=== PATIENT | female | born 1940 | race African-American/Black ===

== ENCOUNTER 2018-03-13 19:24 | Inpatient (IN) | payer OTHER, MEDICAID ==
[~2018-03-13] VITALS: Ht 165.1 cm; Wt 61.7 kg
[2018-03-13 20:48] LABS: CHLORIDE 111 mEq/L (98-107)
[2018-03-13 21:52] LABS: BG BASE EXCESS -0.6 mmol/L (-2.0-2.0); BG CARBOXYHEMOGLOBIN 0.5 % (0.5-1.5); BG DEOXYHEMOGLOBIN 6.2 % (0.0-5.0); BG FRACTION INSPIRED OXYGEN 36; BG HCO3 ACT 25.2 mmol/L (22.0-26.0); BG METHEMOGLOBIN 0.2 % (0.0-1.5); BG OXYGEN SATURATION 93.8 % (92.0-98.5); BG OXYHEMOGLOBIN 93.1 % (94.0-97.0); BG PCO2 46.1 mmHg (35.0-45.0); BG PH 7.356 (7.350-7.450); BG PO2 71.7 mmHg (75.0-100.0); BG SAMPLE SITE RIGHT RADIAL; BG TOTAL HEMOGLOBIN 13.2 g/dL (12.0-18.0); BG VENT MODE NASAL CANNULA
[2018-03-13 22:04] LABS: BASOPHILS % 0.8 % (0.0-2.0); EOSINOPHILS % 2.4 % (0.0-5.0); HEMATOCRIT. 39.9 % (36.0-48.0); HEMOGLOBIN. 13.4 g/dL (12.0-16.0); LYMPHOCYTES % 27.5 % (20.0-50.0); MEAN CORPUSCULAR HEMOGLOBIN 31.4 pg (28.0-32.0); MEAN CORPUSCULAR VOLUME 93.7 fL (81.0-99.0); MONOCYTES % 7.8 % (2.0-8.0); NEUTROPHILS % 61.5 % (40.0-76.0); RED BLOOD CELL COUNT 4.26 mill/uL (4.2-5.4); RED CELL DISTRIBUTION WIDTH 12.9 % (11.6-14.6)
[2018-03-13 22:12] LABS: INR 1.1; PROTHROMBIN TIME 11.3 sec (9.4-11.6)
[2018-03-13] MEDS ORDERED: SODIUM CHLORIDE 0.9% 1,000 ML IV ONE (23:00)
[2018-03-14 03:00] VITALS: BP 169/83
[2018-03-14] MEDS ORDERED: ACETAMINOPHEN 325MG TABLET PO PRN (04:00)
[2018-03-14] MEDS ORDERED: LEVOFLOXACIN 250MG PREMIX 50 ML IV SCH (05:00)
[2018-03-14 08:00] VITALS: BP 162/79
[2018-03-14] MEDS: ENOXAPARIN 40MG/0.4ML SYR SUBCUT SCH (09:10)
[2018-03-14 12:00] VITALS: BP 173/87
[2018-03-14 12:57] LABS: HEMATOCRIT. 40.5 % (36.0-48.0); HEMOGLOBIN. 13.5 g/dL (12.0-16.0); MEAN CORPUSCULAR HEMOGLOBIN 30.8 pg (28.0-32.0); MEAN CORPUSCULAR VOLUME 92.7 fL (81.0-99.0); MEAN PLATELET VOLUME 10.2 fl (7.4-10.4); PLATELET 140 x1000/uL (130-400); RED BLOOD CELL COUNT 4.37 mill/uL (4.2-5.4); RED CELL DISTRIBUTION WIDTH 12.6 % (11.6-14.6)
[2018-03-14 13:03] LABS: AMMONIA 18 uMol/L (<32)
[2018-03-14] MEDS: DEXT 5%/0.45% NACL 1000ML 1,000 ML IV SCH ×2 (13:05→23:54)
[2018-03-14 13:07] LABS: CHLORIDE 107 mEq/L (98-107)
[2018-03-14] MEDS ORDERED: ACETAMINOPHEN 650MG SUPP PR PRN (13:30)
[2018-03-14] MEDS ORDERED: ENALAPRIL 2.5MG/2ML VIAL 2ML IV PRN (13:30)
[2018-03-14] MEDS: HYDRALAZINE 20MG/ML VIAL IV PRN (13:51)
[2018-03-14 15:33] LABS: PLATELET ESTIMATE NORMAL
[2018-03-14 16:00] VITALS: BP 143/67
[2018-03-14] MEDS ORDERED: IPRATROPIUM/ALBUTEROL 0.5-3(2.5)MG/3ML NEB HHN PRN (16:15)
[2018-03-14] MEDS ORDERED: PIPERACILLIN/TAZ 3.375G PREMIX 50 ML IV SCH (17:30)
[2018-03-14 19:15] LABS: CLARITY URINE CLEAR (CLEAR); COLOR URINE YELLOW (YELLOW); KETONES URINE 1+ (NEGATIVE); LEUKOCYTE ESTERASE URINE NEGATIVE (NEGATIVE); NITRITE URINE NEGATIVE (NEGATIVE); OCCULT BLOOD URINE NEGATIVE (NEGATIVE); PROTEIN URINE TRACE (NEGATIVE); SPECIFIC GRAVITY URINE 1.018 (1.005-1.030)
[2018-03-14 20:00] VITALS: BP 149/71
[2018-03-14] MEDS ORDERED: THIAMINE HCL 100 MG in SODIUM CHLORIDE 0.9% 49 ML IV NR (21:00)
[2018-03-14] MEDS: PIPERACILLIN/TAZ 3.375G PREMIX 50 ML IV SCH (21:49)
[2018-03-15] VITALS: BP 166/82
[2018-03-15 04:00] VITALS: BP 165/77
[2018-03-15] MEDS: PIPERACILLIN/TAZ 3.375G PREMIX 50 ML IV SCH ×3 (05:51→21:05)
[2018-03-15 08:00] VITALS: BP 155/84
[2018-03-15 11:20] LABS: BASOPHILS % 0.3 % (0.0-2.0); EOSINOPHILS % 1.1 % (0.0-5.0); HEMOGLOBIN. 12.9 g/dL (12.0-16.0); LYMPHOCYTES % 16.4 % (20.0-50.0); MEAN CORPUSCULAR HEMOGLOBIN 31.3 pg (28.0-32.0); MEAN CORPUSCULAR VOLUME 92.4 fL (81.0-99.0); MEAN PLATELET VOLUME 10.1 fl (7.4-10.4); MONOCYTES % 8.5 % (2.0-8.0); NEUTROPHILS % 73.7 % (40.0-76.0); PLATELET 134 x1000/uL (130-400); RED BLOOD CELL COUNT 4.12 mill/uL (4.2-5.4)
[2018-03-15 12:00] VITALS: BP 203/92
[2018-03-15] MEDS: ENOXAPARIN 40MG/0.4ML SYR SUBCUT SCH (12:19)
[2018-03-15] MEDS: CLOPIDOGREL 75MG TABLET PO SCH (12:19)
[2018-03-15] MEDS: HYDRALAZINE 20MG/ML VIAL IV PRN (12:20)
[2018-03-15] MEDS: AMLODIPINE 10MG TABLET PO SCH (12:20)
[2018-03-15] MEDS: LOSARTAN POTASSIUM 50 MG TABLET PO SCH (13:00)
[2018-03-15 14:26] LABS: CHLORIDE 113 mEq/L (98-107)
[2018-03-15 14:49] LABS: T4 FREE 1.12 ng/dL (0.76-1.46)
[2018-03-15 16:00] VITALS: BP 179/75
[2018-03-15] MEDS ORDERED: VANCOMYCIN 1250MG in DEXTROSE 5% WATER 250ML IV SCH (17:00)
[2018-03-15 20:00] VITALS: BP 149/71
[2018-03-15] MEDS ORDERED: POTASSIUM CHLORIDE 20MEQ/PACKET PO NR (20:30)
[2018-03-15] MEDS: DEXT 5%/0.45% NACL 1000ML 1,000 ML IV SCH (21:04)
[2018-03-16] VITALS: BP 142/73
[2018-03-16 04:00] VITALS: BP 137/82
[2018-03-16] MEDS: PIPERACILLIN/TAZ 3.375G PREMIX 50 ML IV SCH ×3 (05:12→21:04)
[2018-03-16 08:00] VITALS: BP 159/85
[2018-03-16] MEDS: AMLODIPINE 10MG TABLET PO SCH (09:06)
[2018-03-16] MEDS: CLOPIDOGREL 75MG TABLET PO SCH (09:06)
[2018-03-16] MEDS: LOSARTAN POTASSIUM 50 MG TABLET PO SCH (09:06)
[2018-03-16] MEDS: ENOXAPARIN 40MG/0.4ML SYR SUBCUT SCH (09:07)
[2018-03-16 12:00] VITALS: BP 146/77
[2018-03-16] MEDS: VANCOMYCIN 1 G PREMIX 200 ML IV SCH (12:51)
[2018-03-16] MEDS: DEXT 5%/0.45% NACL 1000ML 1,000 ML IV SCH (12:51)
[2018-03-16 16:00] VITALS: BP 140/80
[2018-03-16 20:00] VITALS: BP 153/82
[2018-03-17] VITALS: BP 168/86
[2018-03-17] MEDS: DEXT 5%/0.45% NACL 1000ML 1,000 ML IV SCH ×2 (02:51→15:47)
[2018-03-17 04:00] VITALS: BP 141/75
[2018-03-17] MEDS: VANCOMYCIN 1 G PREMIX 200 ML IV SCH ×2 (04:24→22:33)
[2018-03-17] MEDS: PIPERACILLIN/TAZ 3.375G PREMIX 50 ML IV SCH ×3 (05:53→21:10)
[2018-03-17 08:00] VITALS: BP 133/71
[2018-03-17] MEDS: LOSARTAN POTASSIUM 50 MG TABLET PO SCH (09:06)
[2018-03-17] MEDS: CLOPIDOGREL 75MG TABLET PO SCH (09:06)
[2018-03-17] MEDS: AMLODIPINE 10MG TABLET PO SCH (09:08)
[2018-03-17] MEDS: ENOXAPARIN 40MG/0.4ML SYR SUBCUT SCH (09:08)
[2018-03-17 12:00] VITALS: BP 193/104
[2018-03-17] MEDS: HYDRALAZINE 20MG/ML VIAL IV PRN (13:01)
[2018-03-17] MEDS ORDERED: CLONIDINE 0.1MG TABLET PO PRN (15:45)
[2018-03-17 16:00] VITALS: BP 111/63
[2018-03-17 19:45] LABS: HEMATOCRIT 36.5 % (36.0-48.0); HEMOGLOBIN 12.3 g/dL (12.0-16.0); MEAN CORPUSCULAR VOLUME 92.1 fL (81.0-99.0); PLATELET 179 x1000/uL (130-400); RED BLOOD CELL COUNT 3.96 mill/uL (4.2-5.4); RED CELL DISTRIBUTION WIDTH 12.7 % (11.6-14.6)
[2018-03-17 19:52] LABS: CHLORIDE 108 mEq/L (98-107)
[2018-03-17 20:00] VITALS: BP 138/68
[2018-03-17] MEDS ORDERED: POTASSIUM CHLORIDE 20MEQ TABLET SR PO NR (20:15)
[2018-03-18] VITALS: BP 128/77
[2018-03-18 04:00] VITALS: BP 133/76
[2018-03-18] MEDS: DEXT 5%/0.45% NACL 1000ML 1,000 ML IV SCH ×3 (05:01→20:06)
[2018-03-18] MEDS: PIPERACILLIN/TAZ 3.375G PREMIX 50 ML IV SCH ×3 (05:01→21:30)
[2018-03-18 08:00] VITALS: BP 102/60
[2018-03-18] MEDS: AMLODIPINE 10MG TABLET PO SCH (09:00)
[2018-03-18] MEDS: LOSARTAN POTASSIUM 100 MG TABLET PO SCH (09:00)
[2018-03-18] MEDS: CLOPIDOGREL 75MG TABLET PO SCH (09:48)
[2018-03-18] MEDS: ENOXAPARIN 40MG/0.4ML SYR SUBCUT SCH (09:48)
[2018-03-18 12:00] VITALS: BP 118/67
[2018-03-18] MEDS: VANCOMYCIN 1 G PREMIX 200 ML IV SCH ×2 (14:57→22:28)
[2018-03-18 16:00] VITALS: BP 114/67
[2018-03-18 16:42] LABS: VITAMIN B12 SERUM 284 pg/mL (211-911)
[2018-03-18 20:00] VITALS: BP 119/63
[2018-03-19] VITALS (7 sets, daily range): BP systolic 116–147; BP diastolic 58–76
[2018-03-19] MEDS: DEXT 5%/0.45% NACL 1000ML 1,000 ML IV SCH (04:00)
[2018-03-19] MEDS: PIPERACILLIN/TAZ 3.375G PREMIX 50 ML IV SCH ×2 (05:22→13:12)
[2018-03-19] MEDS: VANCOMYCIN 1 G PREMIX 200 ML IV SCH (08:25)
[2018-03-19] MEDS: ENOXAPARIN 40MG/0.4ML SYR SUBCUT SCH (08:25)
[2018-03-19] MEDS: AMLODIPINE 10MG TABLET PO SCH (08:26)
[2018-03-19] MEDS: CLOPIDOGREL 75MG TABLET PO SCH (08:26)
[2018-03-19] MEDS: LOSARTAN POTASSIUM 100 MG TABLET PO SCH (08:26)
== END 2018-03-19 21:19 | disposition short-term general hospital (02) | DRG 871 ==
LOC: ER 19:24 → 5WST 03-14 01:05 → EDBEDREQTM 03-14 01:06 → EDBEDREQ 03-14 01:06 → ENRESERV 03-14 01:33
PROVIDERS: ADMIT Internal Medicine; ATTEND Internal Medicine
DX: A41.9 Sepsis, unspecified organism (principal); G93.41 Metabolic encephalopathy; J69.0 Pneumonitis due to inhalation of food and vomit; J96.00 Acute respiratory failure, unspecified whether with hypoxia or hypercapnia; I63.9 Cerebral infarction, unspecified; E44.1 Mild protein-calorie malnutrition; I10 Essential (primary) hypertension; E87.8 Other disorders of electrolyte and fluid balance, not elsewhere classified; H40.9 Unspecified glaucoma; F03.90 Unspecified dementia, unspecified severity, without behavioral disturbance, psychotic disturbance, mood disturbance, and anxiety; E03.9 Hypothyroidism, unspecified; R13.10 Dysphagia, unspecified; Z78.1 Physical restraint status; Z68.23 Body mass index [BMI] 23.0-23.9, adult; Z79.899 Other long term (current) drug therapy
CPT/HCPCS: 36415; 36600; 70450; 70551; 71045; 74176; 80048; 80053; 80061; 80202; 81003; 82140; 82375; 82607; 82805; 83036; 83880; 84145; 84439; 84443; 84481; 85025; 85027; 85610; 87040; 87086; 92610; 93005; 93306; 93880; 96360; 97162; 99291; J0360; J1650; J1956; J2543; J3370; J3411; J3490; J7030; J7050; J7060; A4315

== ENCOUNTER 2018-07-23 13:14 | Emergency (ER) | payer OTHER, MEDICAID ==
[~2018-07-23] VITALS: Ht 170.2 cm; Wt 70.0 kg
[2018-07-23 15:00] LABS: BASOPHILS % 0.7 % (0.0-2.0); EOSINOPHILS % 2.6 % (0.0-5.0); HEMATOCRIT. 35.8 % (36.0-48.0); HEMOGLOBIN. 12.1 g/dL (12.0-16.0); LYMPHOCYTES % 19.2 % (20.0-50.0); MEAN CORPUSCULAR HEMOGLOBIN 31.7 pg (28.0-32.0); MEAN CORPUSCULAR VOLUME 93.6 fL (81.0-99.0); MEAN PLATELET VOLUME 10.1 fl (7.4-10.4); MONOCYTES % 8.5 % (2.0-8.0); PLATELET 150 x1000/uL (130-400); RED BLOOD CELL COUNT 3.82 mill/uL (4.2-5.4); RED CELL DISTRIBUTION WIDTH 12.4 % (11.6-14.6)
[2018-07-23 15:08] LABS: INR 1.1; PARTIAL THROMBOPLASTIN TIME 23.4 sec (23.4-31.0); PROTHROMBIN TIME 11.2 sec (9.1-11.1)
[2018-07-23 15:09] LABS: CHLORIDE 108 mEq/L (98-107)
[2018-07-23 15:11] LABS: ETHANOL BLOOD < 10 mg/dL
[2018-07-23 17:44] VITALS: BP 120/63
== END 2018-07-23 18:05 | disposition short-term general hospital (02) ==
LOC: ER 13:14 → CANBEDREQ 16:29 → ER 18:05
DX: R07.9 Chest pain, unspecified (principal); R53.1 Weakness; R55 Syncope and collapse; I10 Essential (primary) hypertension; E78.00 Pure hypercholesterolemia, unspecified; W18.39XA Other fall on same level, initial encounter; Y93.89 Activity, other specified; Y92.128 Other place in nursing home as the place of occurrence of the external cause
CPT/HCPCS: 36415; 70450; 71045; 80053; 83605; 83880; 84484; 85025; 85610; 85730; 87040; 93005; 99285; G0482

== ENCOUNTER 2018-11-09 12:09 | Emergency (ER) | payer OTHER, MEDICAID ==
[~2018-11-09] VITALS: Ht 165.1 cm; Wt 68.0 kg
[2018-11-09 15:33] VITALS: BP 128/68
== END 2018-11-09 15:34 | disposition home or self-care (01) ==
LOC: ER 12:40
DX: B85.2 Pediculosis, unspecified (principal); S00.96XA Insect bite (nonvenomous) of unspecified part of head, initial encounter; I10 Essential (primary) hypertension; E78.00 Pure hypercholesterolemia, unspecified; W57.XXXA Bitten or stung by nonvenomous insect and other nonvenomous arthropods, initial encounter; Y93.9 Activity, unspecified; Y92.9 Unspecified place or not applicable
CPT/HCPCS: 99282

== ENCOUNTER 2020-04-18 16:41 | Emergency (ER) | payer MEDICAID, OTHER ==
[~2020-04-18] VITALS: Ht 165.1 cm; Wt 61.0 kg
[2020-04-18 18:29] LABS: BASOPHILS % 0.6 % (0.0-2.0); EOSINOPHILS % 1.6 % (0.0-5.0); HEMATOCRIT. 38.3 % (36.0-48.0); HEMOGLOBIN. 12.9 g/dL (12.0-16.0); LYMPHOCYTES % 30.5 % (20.0-50.0); MEAN CORPUSCULAR HEMOGLOBIN 31.4 pg (28.0-32.0); MEAN CORPUSCULAR VOLUME 93.3 fL (81.0-99.0); MEAN PLATELET VOLUME 10.2 fl (7.4-10.4); MONOCYTES % 9.9 % (2.0-8.0); NEUTROPHILS % 57.4 % (40.0-76.0); PLATELET 148 x1000/uL (130-400); RED BLOOD CELL COUNT 4.11 mill/uL (4.2-5.4)
[2020-04-18 18:37] LABS: CLARITY URINE CLEAR (CLEAR); COLOR URINE YELLOW (YELLOW); KETONES URINE NEGATIVE (NEGATIVE); LEUKOCYTE ESTERASE URINE NEGATIVE (NEGATIVE); NITRITE URINE NEGATIVE (NEGATIVE); OCCULT BLOOD URINE NEGATIVE (NEGATIVE); PH URINE 6.5 (4.5-8.0); PROTEIN URINE NEGATIVE (NEGATIVE); SPECIFIC GRAVITY URINE 1.021 (1.005-1.030)
[2020-04-18 18:38] LABS: CHLORIDE 110 mEq/L (98-107)
[2020-04-18 20:31] VITALS: BP 141/70
== END 2020-04-18 22:45 | disposition home or self-care (01) ==
LOC: ER 16:41
DX: N28.9 Disorder of kidney and ureter, unspecified (principal); F03.90 Unspecified dementia, unspecified severity, without behavioral disturbance, psychotic disturbance, mood disturbance, and anxiety; E78.00 Pure hypercholesterolemia, unspecified; I10 Essential (primary) hypertension; H54.7 Unspecified visual loss
CPT/HCPCS: 36415; 80053; 81003; 85025; 93005; 99284

== ENCOUNTER 2020-09-08 13:12 | Emergency (ER) | payer OTHER ==
[~2020-09-08] VITALS: Ht 165.1 cm; Wt 67.0 kg
[2020-09-08] MEDS ORDERED: GABAPENTIN 100MG CAPSULE PO ONE (14:00)
[2020-09-08 14:07] LABS: BASOPHILS % 0.7 % (0.0-2.0); EOSINOPHILS % 1.7 % (0.0-5.0); HEMATOCRIT. 39.6 % (36.0-48.0); HEMOGLOBIN. 13.1 g/dL (12.0-16.0); LYMPHOCYTES % 32.3 % (20.0-50.0); MEAN CORPUSCULAR HEMOGLOBIN 30.4 pg (28.0-32.0); MEAN CORPUSCULAR VOLUME 92.2 fL (81.0-99.0); MEAN PLATELET VOLUME 9.8 fl (7.4-10.4); MONOCYTES % 7.5 % (2.0-8.0); NEUTROPHILS % 57.8 % (40.0-76.0); PLATELET 134 x1000/uL (130-400); RED BLOOD CELL COUNT 4.29 mill/uL (4.2-5.4); RED CELL DISTRIBUTION WIDTH 12.8 % (11.6-14.6)
[2020-09-08 14:14] LABS: CHLORIDE 109 mEq/L (98-107)
[2020-09-08] MEDS ORDERED: GABA100C MT (15:05)
[2020-09-08 15:23] VITALS: BP 163/63
== END 2020-09-08 17:25 | disposition home or self-care (01) ==
LOC: ER 13:29
DX: M79.672 Pain in left foot (principal); M79.671 Pain in right foot; G62.9 Polyneuropathy, unspecified; E78.00 Pure hypercholesterolemia, unspecified; I10 Essential (primary) hypertension
CPT/HCPCS: 36415; 73620; 80053; 85025; 93005; 99285

== ENCOUNTER 2022-09-07 19:09 | Emergency (ER) | payer OTHER ==
[~2022-09-07] VITALS: Ht 170.2 cm; Wt 66.0 kg
[~2022-09-07 19:09] MED LIST: GABA100C MT
[2022-09-07 20:22] LABS: BASOPHILS % 0.8 % (0.0-2.0); EOSINOPHILS % 0.5 % (0.0-5.0); HEMATOCRIT. 44.5 % (36.0-48.0); HEMOGLOBIN. 14.6 g/dL (12.0-16.0); MEAN CORPUSCULAR HEMOGLOBIN 31.1 pg (28.0-32.0); MEAN CORPUSCULAR VOLUME 94.7 fL (81.0-99.0); MONOCYTES % 5.7 % (2.0-8.0); RED CELL DISTRIBUTION WIDTH 12.6 % (11.6-14.6)
[2022-09-07 20:33] LABS: PROTHROMBIN TIME 11.2 sec (9.6-11.0)
[2022-09-07 20:34] LABS: CHLORIDE 107 mEq/L (98-107)
[2022-09-07 21:04] LABS: CLARITY URINE CLEAR (CLEAR); COLOR URINE YELLOW (YELLOW); KETONES URINE 1+ (NEGATIVE); LEUKOCYTE ESTERASE URINE NEGATIVE (NEGATIVE); NITRITE URINE NEGATIVE (NEGATIVE); OCCULT BLOOD URINE NEGATIVE (NEGATIVE); PROTEIN URINE 1+ (NEGATIVE); SPECIFIC GRAVITY URINE 1.025 (1.005-1.030)
[2022-09-07 21:11] LABS: MEAN PLATELET VOLUME 10.2 fl (7.4-10.4); PLATELET 109 x1000/uL (130-400)
[2022-09-08 00:30] VITALS: BP 170/85
== END 2022-09-08 01:45 ==
LOC: ER 19:11
DX: R10.9 Unspecified abdominal pain (principal); I11.0 Hypertensive heart disease with heart failure; I50.9 Heart failure, unspecified; E78.00 Pure hypercholesterolemia, unspecified
CPT/HCPCS: 36415; 74176; 80053; 81003; 85025; 99284

== ENCOUNTER 2024-02-13 13:58 | Emergency (ER) | payer MEDICARE, OTHER ==
[~2024-02-13] VITALS: Ht 167.6 cm; Wt 68.0 kg
[2024-02-13 14:03] VITALS: O2SAT 98
[2024-02-13] MEDS ORDERED: NITROGLYCERIN 0.4MG TABLET SL SL PRN (14:15)
[2024-02-13 14:20] VITALS: TEMP 98.9
[2024-02-13] MEDS: ASPIRIN 81MG TABLET PO ONE (14:26)
[2024-02-13 15:10] LABS: BASOPHILS % 0.7 % (0.0-2.0); EOSINOPHILS % 0.3 % (0.0-5.0); HEMATOCRIT. 36.9 % (36.0-48.0); HEMOGLOBIN. 12.3 g/dL (12.0-16.0); LYMPHOCYTES % 15.6 % (20.0-50.0); MEAN CORPUSCULAR HEMOGLOBIN 30.9 pg (28.0-32.0); MEAN CORPUSCULAR HGB CONC 33.3 g/dL (31.0-37.0); MEAN CORPUSCULAR VOLUME 92.8 fL (81.0-99.0); MEAN PLATELET VOLUME 9.7 fl (7.4-10.4); MONOCYTES % 7.6 % (2.0-8.0); NEUTROPHILS % 75.8 % (40.0-76.0); PLATELET 159 x1000/uL (130-400); RED BLOOD CELL COUNT 3.97 mill/uL (4.2-5.4); RED CELL DISTRIBUTION WIDTH 13.1 % (11.6-14.6); WHITE BLOOD COUNT 6.4 x1000/uL (4.5-11.0)
[2024-02-13 15:18] LABS: CHLORIDE 107 mEq/L (98-107); POTASSIUM 3.8 mEq/L (3.5-5.1); SODIUM 140 mEq/L (136-145)
[2024-02-13 15:19] LABS: CARBON DIOXIDE 26 mEq/L (21-32)
[2024-02-13 15:20] LABS: CALCIUM 9.3 mg/dL (8.7-10.4)
[2024-02-13 15:24] LABS: CREATININE 0.8 mg/dL (0.6-1.0); GLUCOSE 143 mg/dL (70-105); UREA NITROGEN BLOOD 13 mg/dL (9-23)
[2024-02-13 15:25] LABS: TROPONIN I HIGH SENSITIVITY 15 ng/L (3.0-34)
[2024-02-13 18:20] VITALS: BP 149/81; PULSE 81; RESP 18
== END 2024-02-13 18:38 | disposition short-term general hospital (02) ==
LOC: ER 13:58 → CANBEDREQ 17:36 → ER 18:38
DX: R07.89 Other chest pain (principal); I11.0 Hypertensive heart disease with heart failure; I50.9 Heart failure, unspecified; E78.00 Pure hypercholesterolemia, unspecified
CPT/HCPCS: 99285; 71045; 80048; 83880; 85025; 84484; 36415; 93005; C1893

== ENCOUNTER 2025-02-26 08:40 | Emergency (ER) | payer OTHER, MEDICAID ==
[~2025-02-26] VITALS: Ht 167.6 cm; Wt 55.0 kg
[2025-02-26 08:42] VITALS: O2SAT 97
[2025-02-26 09:05] LABS: BASOPHILS % 0.5 % (0.0-2.0); EOSINOPHILS % 1.5 % (0.0-5.0); HEMATOCRIT. 34.7 % (36.0-48.0); HEMOGLOBIN. 11.8 g/dL (12.0-16.0); LYMPHOCYTES % 13.1 % (20.0-50.0); MEAN PLATELET VOLUME 8.8 fl (7.4-10.4); MONOCYTES % 6.2 % (2.0-8.0); NEUTROPHILS % 78.7 % (40.0-76.0); PLATELET 158 x1000/uL (130-400); RED BLOOD CELL COUNT 3.76 mill/uL (4.2-5.4); RED CELL DISTRIBUTION WIDTH 12.3 % (11.6-14.6)
[2025-02-26 09:20] LABS: CREATININE 0.8 mg/dL (0.6-1.0); UREA NITROGEN BLOOD 14 mg/dL (9-23)
[2025-02-26 09:21] LABS: TROPONIN I HIGH SENSITIVITY 9 ng/L (3.0-34)
[2025-02-26 13:28] VITALS: BP 133/79; PULSE 67; RESP 18; TEMP 36.7; O2SAT 99
[2025-02-26] MEDS ORDERED: ONDANSETRON HCL 4MG/2ML INJ IV PRN (13:30)
[2025-02-26] MEDS ORDERED: CLONIDINE 0.1MG TABLET PO PRN (13:30)
[2025-02-26] MEDS ORDERED: ACETAMINOPHEN 325MG TABLET PO PRN ×2 (13:30)
[2025-02-26] MEDS ORDERED: DOCUSATE SODIUM 100MG CAPSULE PO PRN (13:30)
[2025-02-26] MEDS ORDERED: IPRATROPIUM/ALBUTEROL 0.5-3(2.5)MG/3ML NEB HHN PRN (13:30)
[2025-02-26] MEDS ORDERED: ENOXAPARIN 40MG/0.4ML SYR SUBCUT SCH (14:00)
== END 2025-02-26 14:01 | disposition short-term general hospital (02) ==
LOC: ER 08:40 → CANBEDREQ 10:32 → ER 14:01
DX: I11.0 Hypertensive heart disease with heart failure (principal); I67.82 Cerebral ischemia; E78.00 Pure hypercholesterolemia, unspecified; R54 Age-related physical debility; I50.9 Heart failure, unspecified; Z88.0 Allergy status to penicillin; Z88.5 Allergy status to narcotic agent
CPT/HCPCS: 36415; 71045; 80048; 82550; 84484; 85025; 93005; 94640; 99285; A4606